=== PATIENT | male | born 2000 | race Caucasian/White ===

== ENCOUNTER 2025-03-23 12:19 | Emergency (ER) | payer SELFPAY ==
[~2025-03-23] VITALS: Ht 180.3 cm; Wt 86.0 kg
[2025-03-23 12:30] VITALS: O2SAT 99
[2025-03-23] MEDS ORDERED: BO1 TP (13:30)
[2025-03-23] MEDS ORDERED: CEPH500C2 MT (13:30)
[2025-03-23 14:07] VITALS: BP 119/64; PULSE 88; RESP 18; TEMP 36.7; O2SAT 99
== END 2025-03-23 14:08 | disposition home or self-care (01) ==
LOC: ER 12:19
DX: L02.31 Cutaneous abscess of buttock (principal)
CPT/HCPCS: 99282; 99283